=== PATIENT | female | born 1940 | race Caucasian/White ===

== ENCOUNTER → 2017-10-14 | Day surgery (SDC) | payer MEDICARE ==
[2017-10-13 12:48] LABS: BASOPHILS # (AUTO) 0.1 (0.0-0.1); EOSINOPHILS # (AUTO) 0.6 (0.0-0.4); EOSINOPHILS % 5.1 % (0.0-6.0); HEMATOCRIT 41.3 % (34.2-44.1); HEMOGLOBIN 12.6 g/dL (12.0-16.0); LYMPHOCYTES # (AUTO) 1.5 (1.0-3.2); MEAN CORPUSCULAR HEMOGLOBIN 27.3 pg (28-32); MEAN CORPUSCULAR HGB CONC 30.5 g/dL (31-35); MEAN CORPUSCULAR VOLUME 89.6 fL (81-99); MONOCYTES # (AUTO) 0.8 (0.2-0.8); MONOCYTES % 6.3 % (4.4-11.3); NEUTROPHILS % 74.7 % (38.7-80.0); PLATELET COUNT 436 x10e3/uL (140-360); RED BLOOD COUNT 4.61 x10e6/uL (3.6-5.1)
[2017-10-13 12:58] LABS: INR 1.04; PROTHROMBIN TIME 12.8 seconds (11.9-14.5)
[2017-10-13 13:06] LABS: ALBUMIN 3.5 g/dL (3.5-5.0); ANION GAP 14.1 mmol/L (8-16); CALCIUM 9.8 mg/dL (8.4-10.2); CHOL/HDL RATIO 3.9 (3.0-3.6); CREATININE, SERUM 1.29 mg/dL (0.57-1.11); POTASSIUM 5.1 mmol/L (3.5-5.1)
[~2017-10-14] VITALS: Ht 174 cm; Wt 82.1 kg
[~2017-10-14] MED LIST: AMLODIPINE BESYL5 MG PO; ASPIRIN DIPYRIDAMOLE PO; BENZOCAINE 20% SPR 60 ML CAN ONE; FENTANYL CITRATE/PF 100MCG/2 ML INJ ONE; GABAPENTIN300 MG PO; HYDROXYUREA500 MG PO; INSULIN REGULAR, HUMAN 100 UNIT/1 ML 3ML VIAL ONE; LIDOCAINE 1% W/EPINEPHRINE 20 ML VIAL ONE; LIDOCAINE HCL 2% LOCAL INJ 5 ML SDV VIAL INJ ONE; LISINOPRIL10 MG PO; METFORMIN HCL500 MG PO; METOPROLOL TART25 MG PO; MIDAZOLAM HCL 2 MG/2 ML VIAL ONE; PROPOFOL IV EMULSION 10 MG/ML 20 ML VIAL ONE; SIMVASTATIN40 MG PO; SODIUM CHLORIDE 0.9% 1000ML 1,000 ML ONE; TORSEMIDE10 MG PO; VENLAFAXINE HCL75 M1 PO
--- OUTSIDE RECORDS SUMMARY | 2017-10-14 11:36 | XMS REPORT | Clinical Summary ---
Author Author [facility] Address Unknown Phone Unavailable Care Team Providers Care Proofer Prepress Name Role Phone Haris Beverly DO PCP Allergies Active Allergy Reactions Severity Noted Date Comments Vancomycin High 04/09/2016 Current Medications Prescription Sig. Disp. Refills Start End Date Status Date amLODIPine (NORVASC) 5 MG 02/18/20 Active tablet 16 atenolol (TENORMIN) 50 MG 02/10/20 Active tablet 16 estradiol (ESTRACE) 1 MG 03/12/20 Active tablet 16 gabapentin (NEURONTIN) 04/02/20 Active 300 MG capsule 16 HYDROcodone-acetaminophen 04/03/20 Active (NORCO) 7.5-325 mg per 16 tablet ibuprofen (ADVIL,MOTRIN) 03/12/20 Active 600 MG tablet 16 LANTUS SOLOSTAR 100 04/01/20 Active unit/mL (3 mL) insulin 16 pen lisinopril 01/13/20 Active (PRINIVIL,ZESTRIL) 20 MG 16 tablet LORAZepam (ATIVAN) 1 MG 03/04/20 Active tablet 16 metFORMIN (GLUCOPHAGE) 02/15/20 Active 1000 MG tablet 16 simvastatin (ZOCOR) 40 MG 02/10/20 Active tablet 16 torsemide (DEMADEX) 20 MG 04/08/20 Active tablet 16 venlafaxine XR 01/20/20 Active (EFFEXOR-XR) 75 MG 24 hr 16 capsule progesterone (PROMETRIUM) 04/24/20 Active 100 MG capsule 16 Active Problems No known active problems Social History Tobacco Use Types Packs/Day Years Used Date Never Smoker Sex Assigned at Date Recorded Not on file Last Filed Vital Signs Not on file Plan of Treatment Health Maintenance Due Date Last Done Comments SHINGRIX VACCINE (#1) 1989 ZOSTER VACCINE 1999 PNEUMOCOCCAL 2004 POLYSACCHARIDE VACCINE AGE 65 AND OVER PNEUMOCOCCAL-13 2004 INFLUENZA VACCINE 01/14/2018 Results Not on fileafter 10/13/2016 Insurance Payer Benefit Subscriber ID Type Phone Address Plan / Group MEDICARE MEDICARE xxxxxxxxxx Medicare [place] PART A [place] B AARP AARP xxxxxxxxxxx Commercial SUPPLEMENT [place] [id number]
[2017-10-14 13:18] VITALS: BP 168/87
--- NOTE | 2017-10-14 15:25 | Operative Report ---
DATE OF PROCEDURE: October 14, 2017 INDICATIONS: Cryptogenic stroke. PROCEDURES PERFORMED: Insertable loop recorder. Left anterior chest was anesthetized using subcutaneous lidocaine. A [employer] LINQ, serial number [id number], was inserted without complications. Skin approximated with Dermabond. Patient discharged home same day. Job#: [id number]
== END | disposition home or self-care (01) ==
LOC: CATH LAB 11:34
PROVIDERS: ATTEND Internal Medicine Interventional Cardiology
DX: I48.91 Unspecified atrial fibrillation (principal); I10 Essential (primary) hypertension; E11.9 Type 2 diabetes mellitus without complications; Z79.84 Long term (current) use of oral hypoglycemic drugs; F41.9 Anxiety disorder, unspecified; Z86.73 Personal history of transient ischemic attack (TIA), and cerebral infarction without residual deficits; Z79.82 Long term (current) use of aspirin; Z88.3 Allergy status to other anti-infective agents; Z87.891 Personal history of nicotine dependence
CPT/HCPCS: 33282; 36415 ×2; 80053; 80061; 82948; 85025; 85610; 93005; 93312; 93320; 93325; C1764; J2001; J2250; J7030